=== PATIENT | female | born 1995 | race African-American/Black ===

== ENCOUNTER 2017-01-24 11:04 | Emergency (ER) | payer MEDICAID, OTHER ==
[~2017-01-24 11:04] MED LIST: BACT2OIN TOP; SULF1TAB47 PO; Z.0.NO CURRENT MEDS
[2017-01-24 11:06] VITALS: BP 129/65; PULSE 80; RESP 15; TEMP 99.2; O2SAT 100
[2017-01-24] MEDS ORDERED: ALBUAER3 INH (11:34)
[2017-01-24] MEDS ORDERED: IBUPROFEN SUSP 100 MG/5 ML UDC PO ONE (11:45)
--- NOTE | 2017-01-24 12:07 | PD ---
HPI Chief Complaint: ENT Complaint Time Seen by Provider: 11:33 Travel History International Travel<30 days: No Contact w/Intl Traveler<30days: No Traveled to known affect area: No History of Present Illness HPI Patient is a 21-year-old female here for evaluation of sore throat that started yesterday. It has been worsening overnight. She also has had chills and has felt hot on and off last night. She has no cough, nasal congestion or runny nose. She has been spitting up her saliva due to pain with swallowing. There has been no vomiting and no diarrhea. Her appetite is decreased. Her urine output is normal. She has no eye redness or eye drainage. She has no sick contacts. She is attending college here. She normally lives in [place]. She does have history of eczema and asthma. She has an inhaler. History Past Medical History Anemia: Yes Integumentary: Yes (eczema) Tetanus Vaccination: < 5 Years ?: Not LMP: 1 weekago Past Surgical History Surgical History: No Previous Surgery Social History Attends: School (college) Tobacco Use in Home: No Alcohol Use: No Tobacco Use: No Substance Use: No Allergies-Medications (Allergen,Severity, Reaction): Coded Allergies: No Known Allergies (Unverified Adverse Reaction, Unknown, 01/24/17) Reported Meds & Prescriptions Reported Meds & Active Scripts Active Reported Proair Hfa 8.5 GM Inh (Albuterol Sulfate) 90 Mcg/Act Aer 2 Puff INH Q4-6H PRN 108 mcg/actuation ROS Except as stated in HPI: all other systems reviewed are Neg Physical Exam Narrative GENERAL APPEARANCE: The patient is a well-developed, obese child in no acute distress. SKIN: Skin is warm and dry without rashes. There is good turgor. No tenting. HEENT: Throat is mildly erythematous with symmetrically enlarged tonsils that are touching the uvula. No lesions or exudate. Uvula is midline. Mucous membranes are moist. Airway is patent. The pupils are equal, round and reactive to light. Extraocular motions are intact. No drainage or injection. Both tympanic membranes are without erythema, dullness or loss of landmarks. No perforation. No nasal congestion. NECK: Supple and nontender with full range of motion without discomfort. No meningeal signs. No lymphadenopathy. LUNGS: Good air entry bilaterally with equal breath sounds without wheezes, rales or rhonchi. CHEST: The chest wall is without retractions or use of accessory muscles. HEART: Regular rate and rhythm without murmur. ABDOMEN: Soft, nondistended, nontender with positive active bowel sounds. No masses, no hepatosplenomegaly. EXTREMITIES: Full range of motion of all extremities is present. No cyanosis. Capillary refill is less than 2 seconds. NEUROLOGIC: The patient is alert, aware and appropriately interactive with parent and with examiner. Cranial nerves 2 to 12 are grossly intact. Good tone. Data Data Last Documented VS Vital Signs Date Time Temp Pulse Resp B/P (MAP) Pulse Ox O2 Delivery O2 Flow Rate FiO2 01/24/17 11:06 99.2 80 15 129/65 (86) 100 Orders Orders Group A Rapid Strep Screen (01/24/17 11:16) Ibuprofen Liq (Motrin Liq) (01/24/17 11:45) Strep Culture (Group A) (01/24/17 11:45) Ed Discharge Order (01/24/17 12:40) MDM Medical Decision Making Medical Screen Exam Complete: Yes Emergency Medical Condition: Yes Medical Record Reviewed: Yes (No prior ED visit in our system.) Interpretation(s) Rapid group A strep antigen is negative. Throat culture is pending. Differential Diagnosis Strep pharyngitis, viral pharyngitis, tonsillar abscess, retropharyngeal abscess , infectious mononucleosis Narrative Course 21-year-old female with clinical presentation most consistent with viral pharyngitis. Patient has symmetric tonsillar hypertrophy but this may be baseline. Patient is not sure. She is well-appearing and well-hydrated. Her lungs are clear. Rapid group A strep antigen is negative. Throat culture is pending. I discussed diagnosis, expected course and treatment plan with her and she feels comfortable. I discussed signs of worsening and reasons to return to ER. Diagnosis Primary Impression: Pharyngitis Qualified Codes: J02.9 - Acute pharyngitis, unspecified Referrals: Primary Care Physician 2 days Patient Instructions: General Instructions, Pharyngitis in Children (ED) Departure Forms: Tests/Procedures Additional Instructions: Tylenol/Motrin for pain and fever. Rest. Fluids. Regular diet as tolerated. Return to ER if worsening. Follow up with a primary care doctor in 2 to 3 days if not better. Med/Other Pt SpecificInfo: Other (Tylenol/Motrin for pain and fever.) Disposition: 01 DISCHARGE HOME Condition: Stable Primary Care Physician Unknown Karolina Sal MD Jan 24, 2017 12:07
== END 2017-01-24 12:43 | disposition home or self-care (01) ==
LOC: NEPA 11:04
DX: J02.0 Streptococcal pharyngitis (principal); B95.4 Other streptococcus as the cause of diseases classified elsewhere
CPT/HCPCS: 87081; 87880; 99283